=== PATIENT | male | born 1960 | race Caucasian/White ===

== ENCOUNTER 2024-07-13 15:58 | Emergency (ER) | payer BC, SELFPAY ==
[2024-07-13 16:08] VITALS: BP 167/91
[2024-07-13 16:35] LABS: % Basophils 0.6 % (0-2); % Eosinophils 1.4 % (0-6); % Immature Granulocytes 0.2 % (0-0.5); % Lymphocytes 18.9 % (20.5-51.1); % Monocytes 7.3 % (1.7-9.3); % Neutrophils 71.6 % (42.2-75.2); Absolute Eosinophils 0.1 10^3/uL (0-0.7); Absolute Lymphocytes 1.3 10^3/uL (1.2-3.4); Absolute Monocytes 0.5 10^3/uL (0.1-0.6); Absolute Neutrophils 4.7 10^3/uL (1.4-6.5); Hematocrit 44.8 % (39.0-52.0); Hemoglobin 14.9 g/dL (13.0-18.0); Mean Corp Hgb Conc. 33.3 g/dL (33.0-37.0); Mean Corpuscular Hgb 30.2 pg (27.0-31.0); Mean Corpuscular Volume 90.9 fL (80.0-94.0); Mean Platelet Volume 10.4 fL (7.4-10.4); Nucleated Red Blood Cells % 0 % (-); Platelet Count 163 10^3/uL (130-400); Red Blood Cell Count 4.93 10^6/uL (4.70-6.10); Red Cell Dist. Width 12.8 % (11.5-14.5); Urine Albumin Trace (Neg - Trace); Urine Bilirubin Negative (Negative); Urine Character Clear (Clear); Urine Color Yellow; Urine Glucose Negative (Negative); Urine Ketone Negative (Negative); Urine Leukocyte Negative (Negative); Urine Nitrite Negative (Negative); Urine Occult Blood Trace (Negative); Urine Specific Gravity 1.015 (<1.030); Urine Urobilinogen Negative (Neg - 1+); White Blood Cell Count 6.6 10^3/uL (4.8-10.8)
[2024-07-13 16:42] LABS: Urine Mucus Many; Urine Squamous Cell 0-2 /LPF (Few)
[2024-07-13 16:44] LABS: Urine Red Blood Cell 0-2 /HPF (0-2); Urine Sperm Seen; Urine White Cell 0-2 /HPF (0-5)
[2024-07-13 16:45] LABS: Urine Bacteria Many (Negative)
[2024-07-13 16:48] LABS: ALT (SGPT) 12 U/L (0-50); AST (SGOT) 22 U/L (17-59); Albumin 4.1 g/dl (3.5-5.0); Alkaline Phosphatase 78 U/L (38-126); Blood Urea Nitrogen 30 mg/dl (9-20); Carbon Dioxide 26 mmol/L (22-30); Chloride 104 mmol/L (98-107); Glucose 106 mg/dl (70-99); Potassium 4.9 mmol/L (3.5-5.1); Sodium 137 mmol/L (135-145); Total Bilirubin 1.2 mg/dl (0.2-1.3); Total Protein 7.2 g/dl (6.3-8.2); eGFR > 60.00
[2024-07-13 17:32] VITALS: BP 155/90
[2024-07-13 19:47] VITALS: BP 145/86
[2024-07-13 19:49] VITALS: BMI 21.1
[2024-07-13 20:00] VITALS: BP 165/83
--- NOTE | 2024-07-13 20:03 | ED.GENMED ---
History of Present Illness
General
Chief Complaint: Change in Mental Status
Source: patient, spouse and family
Exam Limitations: none
Time Seen by Provider: 07/13/24 19:53
Nursing documentation reviewed up to this point in time: agreed with
History of Present Illness
History of Present Illness:
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
seen by a neurologist told that he had plaques of white in his brain told to follow-up but he never did, apparently few weeks or months ago had some periods when he would not speak, but then will come out of it in a few days, patient tells me during
these episodes he was just 'shutting down', here he is oriented person place and time he is cooperative, relatively stable vital signs imaging and labs, slightly abnormal urinalysis without symptoms tells me has no PCP and will follow-up
Past History
Past History
ED Past Medical History: HTN, Hypercholesterolemia, Psychiatric (Anxiety) and Other (BPH, urinary retention, kidney stones, UTI, Chronic bronchitis, Cellulitis, )
ED Past Surgical History: Urological (Partial prostate removed, Laser to prostate)
Social History
Tobacco: Non-smoker
Alcohol: None
Drug: None
Personal:
Living: with family
Employment: Employed
Family History
Family History: Other (Other was prostate cancer, pancreatic cancer)
Review of Systems
Review of Systems
All Other Systems: ROS reviewed and negative except as documented in HPI and ROS
Constitutional: Denies fever or fatigue
EENT: Reports no symptoms
Respiratory: Reports no symptoms
ABD/GI: Reports no symptoms
: Reports no symptoms
Musculoskeletal: Reports no symptoms
Skin: Reports no symptoms
Neurological: Reports no symptoms
Hematologic/Lymphatic: Reports no symptoms
Phy Exam
Physical Exam
Physical Exam:
Physical Exam
General: no apparent distress, not acutely ill
Neck: No jaundice
Heart: Regular
Lungs: no acute respiratory distress. clear bilaterally
Abdomen: Nontender
Neuro: alert and oriented. no focal neurological deficits oriented to person place and time
Skin: Suntanned skin, malodorous
Psychiatric: Somewhat dismissive of questions but cooperative, not hallucinating
Extremities: no edema
Course
Orders/Labs/Results
Orders:
Orders
07/13/24 16:12
CT Head W/o Iv Contrast Urgent
Comment:
Reason For Exam: confusion
07/13/24 16:27
Complete Blood Count/With Diff Urgent
Comprehensive Metabolic Panel Urgent
Urinalysis Reflex To Culture Urgent
Date Specimen was Collected: 07/13/24
Time Specimen was Collected: 16:10
Urine Microscopic Reflex Cult Urgent
Urine Culture Urgent
AMANDA Source: U
Specimen Description:
Date Specimen was Collected: 07/13/24
Time Specimen was Collected: 16:10
Abnormal Lab Results
07/13/24
16:27
Lymphocytes % 18.9 L %
(20.5-51.1)
BUN 30 H mg/dl
(9-20)
Glucose 106 H mg/dl
(70-99)
Ur Occult Blood Reflex Trace A
(Negative)
Urine Bacteria (Reflex) Many A
(Negative)
07/13/24 16:27
07/13/24 16:27
Vital Signs
Initial and Last Documented VS:
Initial Vital Signs
Temp Pulse Resp BP Pulse Ox
97.7 F 54 16 167/91 100
07/13/24 16:08 07/13/24 16:08 07/13/24 16:08 07/13/24 16:08 07/13/24 16:08
Last Documented Vital Signs
Temp Pulse Resp BP Pulse Ox
97.9 F 63 16 145/86 98
07/13/24 17:32 07/13/24 17:32 07/13/24 17:32 07/13/24 19:47 07/13/24 19:50
MDM/Problems Addressed
Differential Diagnosis Includes:
Brain mass mass mental illness neurologic issue behavioral issue
MDM/Problems Addressed:
Behavioral
Chronic conditions affecting care: HTN, Neurological disorder and Psychiatric illness
Acute Exacerbation and/or Progression of Chronic Illness: HTN, Neurological disorder and Psychiatric illness
*Radiology
Radiology exam reviewed: radiology read reviewed
*Pulse Oximetry
Patient hypoxic: no
*EKG
Interpreted by ED Provider?: Yes
Interpretation: normal
Comparison EKG: no comparison EKG present
Heart Rate: 78
Rate: normal
Rhythm: sinus
Ischemia: no ischemia
*Human Resources Supervisor Interpretation
Rate: normal
Interpretation: normal
Heart Rate: 78
Rhythm: sinus
*Critical Care Note
Total Time (30-74mins, 75-104mins- exclusive of procedures): Not Applicable
Update Note
Update Note:
Update vital signs are stable no apparent life-threatening causes identified, and daughter think there is a neurologic issue going on admittedly subacute which is a possibility but does not need to be worked up as an inpatient, encouraged to
follow-up with the PCP and neurologist
UA noted cultures pending will hold on any antibiotics no white cells no symptoms
BUN/creatinine noted patient drinking water
ED Attending Note
-
Portions of this chart may have been created with voice recognition software.� Occasional wrong word or��sound alike� substitutions may have occurred due to the inherent limitations of voice recognition software.
Discharge Plan
Departure
Patient Disposition: Home (Routine Discharge)
Date of Disposition: 07/13/24
Time of Disposition: 20:10
Patient with high blood pressure during this ER visit?: Yes
Condition: Good
Discharge Problem:
Age appropriate mental status
Instructions: Altered Mental Status (DC)
Prescriptions:
No Action
albuterol sulfate [Ventolin HFA] 90 MCG/PUFF HFA aerosol inhaler
2 puff inhalation Q6 PRN (Reason: wheezing, shortness of breath) Qty: 1 0RF
cephalexin 500 MG capsule
500 mg PO BID Qty: 14 0RF
clindamycin HCl [Cleocin HCl] 300 MG capsule
300 mg PO TID Qty: 30 0RF
clindamycin palmitate HCl [Clindamycin Pediatric] 75 MG/5 ML recon soln
150 mg PO TID Qty: 300 0RF
Referrals:
Serg Moore MD [Active] - Next open appointment
[facility] [Provider Group] - Next open appointment
Interventions
Interventions:
*Risk Screen - Suicide Last Done: 07/13/24 16:08
*General Assessment Last Done: 07/13/24 16:08
*Neglect/Abuse Screening Last Done: 07/13/24 16:08
ED- Fall Risk Assessment Last Done: 07/13/24 19:50
*ED COVID-19 Vaccine History Last Done: 07/13/24 19:49
ED- Pulmonary Assessment Last Done: 07/13/24 19:50
ED- Neurological Assessment Last Done: 07/13/24 19:50
ED- Cardiac Assessment Last Done: 07/13/24 19:50
ED Swallowing Screen Last Done: 07/13/24 19:50
Discharge Date and Time
Print Language: YORUBA
== END 2024-07-13 20:29 | disposition home or self-care (01) ==
LOC: EMR 15:58
PROVIDERS: Emergency Medicine; EMERGENCY PHYSICIAN Emergency Medicine; FAMILY PHYSICIAN Family Medicine
DX: R41.82 Altered mental status, unspecified (principal); Z72.6 Gambling and betting; I10 Essential (primary) hypertension; E78.00 Pure hypercholesterolemia, unspecified; F41.9 Anxiety disorder, unspecified; Z87.440 Personal history of urinary (tract) infections; Z87.442 Personal history of urinary calculi; Z90.79 Acquired absence of other genital organ(s); N40.0 Benign prostatic hyperplasia without lower urinary tract symptoms
CPT/HCPCS: 99284; 70450; 80053; 81003; 81015; 85025; 87086

== ENCOUNTER 2025-04-22 15:28 | Emergency (ER) | payer MEDICARE, BC, SELFPAY ==
[2025-04-22 15:37] VITALS: BP 147/89
--- NOTE | 2025-04-22 17:35 | ED.GENMED ---
History of Present Illness
General
Chief Complaint: Throat Problem
Source: patient
Exam Limitations: none
Time Seen by Provider: 04/22/25 17:27
History of Present Illness
History of Present Illness:
65-year-old male was [place] food [place] last evening around 2 AM. [place] a foreign body sensation pull out an egg shell. Complaining of ongoing pain with swallowing. Feels a get scratched. Patient is able to swallow and actually feels
better with cold liquid. No shortness of breath no fever no neck swelling no other complaints
Past History
Past History
ED Past Medical History: HTN, Hypercholesterolemia, Psychiatric (Anxiety) and Other (BPH, urinary retention, kidney stones, UTI, Chronic bronchitis, Cellulitis, )
ED Past Surgical History: Urological (Partial prostate removed, Laser to prostate)
Social History
Tobacco: Non-smoker
Alcohol: None
Drug: None
Personal:
Living: with family
Employment: Employed
Family History
Family History: Other (Other was prostate cancer, pancreatic cancer)
Review of Systems
Review of Systems
All Other Systems: Not applicable
Constitutional: Denies fever
Respiratory: Reports no symptoms
Phy Exam
Physical Exam
Physical Exam:
GENERAL: Alert and oriented in no apparent distress. Sitting in the chair nontoxic
EYE: Orbits normal.
NECK: Supple, no swelling. No crepitus
ENT: Pharynx without erythema. No foreign body. No drooling no stridor. Speech is normal.
CARDIAC: Regular rate and rhythm without any obvious murmurs.
LUNGS: Clear breath sounds,normal
NEUROLOGICAL: Alert and oriented , grossly non-focal
SKIN: Warm and dry
PSYCH: Normal and appropriate interaction.
Course
Orders/Labs/Results
Orders:
Orders
04/22/25 17:34
Soft Tissue, Neck [CR Soft Tissue Neck ] Urgent
Comment:
Reason For Exam: Foreign body sensation/eggshell
Vital Signs
Initial and Last Documented VS:
Initial Vital Signs
Temp Pulse Resp BP Pulse Ox
98.5 F 86 18 147/89 98
04/22/25 15:37 04/22/25 15:37 04/22/25 15:37 04/22/25 15:37 04/22/25 15:37
Last Documented Vital Signs
Temp Pulse Resp BP Pulse Ox
98.5 F 86 18 147/89 98
04/22/25 15:37 04/22/25 15:37 04/22/25 15:37 04/22/25 15:37 04/22/25 17:37
MDM/Problems Addressed
Differential Diagnosis Includes:
Patient is describing more of an abrasion than a foreign body sensation. No airway issues. Will start with soft tissue lateral neck x-ray. No need for emergent fiberoptic scope at this time. If x-ray is negative symptomatic treatment and
follow-up with ENT with persistent symptoms
*Radiology
Radiology exam reviewed: preliminary read by ED provider (Negative)
*Pulse Oximetry
SaO2: 98
Oxygen Mode of Delivery: Room air
Patient hypoxic: no
*Critical Care Note
Total Time (30-74mins, 75-104mins- exclusive of procedures): Not Applicable
Data Reviewed
Review of Other/Old Records Reveals: Labs, Records and Testing
Update Note
Update Note:
Patient remained stable and nontoxic. No distress. No airway issue. Likely all abrasion. Discharged to follow-up
Radiology pointed out the epiglottis still slightly full. However it has been full in the past. He does not have symptoms consistent with epiglottitis. All consistent with a foreign body ingestion causing local symptoms. No fever no drooling no
stridor no speech issues.
1600 04/24... I did get a hold of the patient's . She will is aware of the fullness of the epiglottis and is fully understanding that he should follow-up with ENT.
ED Attending Note
-
Portions of this chart may have been created with voice recognition software.� Occasional wrong word or��sound alike� substitutions may have occurred due to the inherent limitations of voice recognition software.
Discharge Plan
Departure
Patient Disposition: Home (Routine Discharge)
Date of Disposition: 04/22/25
Time of Disposition: 19:07
Patient with high blood pressure during this ER visit?: Yes
Discharge Problem:
Ingested foreign body, Suspect pharyngeal abrasion
Instructions: Swallowed Objects, Adult (DC), BLOOD PRESSURE
Prescriptions:
No Action
albuterol sulfate [Ventolin HFA] 90 MCG/PUFF HFA aerosol inhaler
2 puff inhalation Q6 PRN (Reason: wheezing, shortness of breath) Qty: 1 0RF
cephalexin 500 MG capsule
500 mg PO BID Qty: 14 0RF
clindamycin HCl [Cleocin HCl] 300 MG capsule
300 mg PO TID Qty: 30 0RF
clindamycin palmitate HCl [Clindamycin Pediatric] 75 MG/5 ML recon soln
150 mg PO TID Qty: 300 0RF
Referrals:
Jah Doran MD [Active, Otology] - Follow up in 2-3 days
Louis Rao DO [Family Provider, Family Practice]
Activity Restrictions/Additional Instructions:
If symptoms are not improving by tomorrow please call the ENT doctor for close follow-up
Return sooner with increasing pain difficulty swallowing fever shortness of breath or any other concerning symptoms
Interventions
Interventions:
*Risk Screen - Suicide Last Done: 04/22/25 15:37
*General Assessment Last Done: 04/22/25 15:37
*Neglect/Abuse Screening Last Done: 04/22/25 15:37
*ED- Fall Risk Assessment Last Done: 04/22/25 15:37
*ED COVID-19 Vaccine History Last Done: 04/22/25 15:37
*ED Influenza Vaccine History Last Done: 04/22/25 15:37
*Nursing Disposition Last Done: 04/22/25 19:15
ED- Pulmonary Assessment Last Done: 04/22/25 18:51
Discharge Date and Time
Discharge Date/Time: 04/22/25 19:16
Print Language: UKRAINIAN
== END 2025-04-22 19:16 | disposition home or self-care (01) ==
LOC: EMR 15:28
PROVIDERS: EMERGENCY PHYSICIAN Emergency Medicine; FAMILY PHYSICIAN Family Medicine
DX: T18.9XXA Foreign body of alimentary tract, part unspecified, initial encounter (principal); W44.8XXA Other foreign body entering into or through a natural orifice, initial encounter; E78.00 Pure hypercholesterolemia, unspecified; I10 Essential (primary) hypertension
CPT/HCPCS: 99283; 70360